=== PATIENT | female | born 1980 | race Caucasian/White ===

== ENCOUNTER 2016-05-31 21:11 | Inpatient (IN) | payer OTHER, MEDICARE ==
[~2016-05-31] VITALS: Ht 162.6 cm; Wt 63.5 kg
[~2016-05-31 21:11] MED LIST: ACAMPROSATE CA333 M1 PO; ALDACTONE50 MG PO; ATIVAN2 MG/ML IV; CEPHALEXIN500 M1 PO; DILAUDID2 MG/M1 IV; ENULOSE 2020 GM/30 M PO; FOLIC ACID 1 MG PO; FOLIC ACID1 M1 PO; FUROSEMIDE20 MG PO; FUROSEMIDE40 M1 PO; HALDOL 1MG TABLE1 MG PO; IRON325 M3 PO; K-DUR 20MEQ TA20 MEQ PO; LACTATED RING IV; LORAZEPAM1 MG PO; MULTI-DAY VITA1 EACH PO; MULTIVITAMIN1 TAB PO; ROCEPHIN2000 MG IV; SPIRONOLACTONE50 M1 PO; TUMS PO; TYLENOL TAB 32325 MG PO; Theragran Vitamins PO; VANCOMYCIN 11000 MG IV; VITAMIN B COMP1 EACH PO; VITAMIN B1100 MG PO; VITAMIN D31000 UNI1 PO; VITAMIN D3400 UNI1 PO; XIFAXAN550 MG PO; ZOFRAN 2MG/4 MG/2 ML IV
--- NOTE | 2016-05-31 21:34 | ED PSYCHIATRIC COMPLAINT ---
History of Present Illness General Chief Complaint: ETOH/Drug Related Complaint Stated Complaint: PT NEEDS TO DETOX FROM ALCOHOL Source: patient, family Exam Limitations: intoxication Vital Signs & Intake/Output Vital Signs & Intake/Output Vital Signs Date Time Temp Pulse Resp B/P Pulse O2 O2 Flow FiO2 Ox Delivery Rate 06/01 0342 97.7 131 16 133/64 06/01 0317 97.7 132 18 133/64 96 Room Air 06/01 0145 98.0 127 18 135/78 06/01 0145 98.0 127 18 135/78 96 05/31 2345 126 18 130/78 05/31 2345 98.1 126 18 130/78 96 05/31 2318 130 138/82 05/31 2244 99.1 112 20 139/80 97 Room Air 05/31 2243 99.1 111 18 139/80 05/31 2120 98.0 132 22 145/94 96 ED Intake and Output 06/01 0000 05/31 1200 Intake Total Output Total Balance Patient 130 lb Weight Allergies Coded Allergies: NO KNOWN ALLERGIES (08/25/15) Triage Note: PER PT " I AM AN ALCOHOLIC AND NEED DETOX" APPEARS IMPAIRED BUT REPORTS LAST DRINK THIS AM. DENEIS SI/HI. PT DENIES WITHDRAWAL SZ. Triage Nurses Notes Reviewed? yes Onset: Gradual Duration: several years, worse times one month Timing: multiple episodes today Severity: severe Associated Symptoms: intoxication : No Patient currently breastfeeds: No HPI: This is a 35-year-old female with history of alcoholism for the past 5 years who presents with family from home for chief complaint of alcohol abuse. Patient has history of alcohol dependence for the past 5 years. She has had admissions to the ICU for combinations of anemia, failure to thrive, pancreatitis most recent 2 months ago in [place] for TAC and compartment syndrome of her left leg. She has been missing since Sunday and tonight they got a call from the film editor of the house in which she was staying illegally. Admits to drinking today. Found to having bruising on her right flank, unknown trauma. (CODY DE LA FUENTE,DANA) Reconcile Medications Acamprosate Calcium 333 MG TABLET. 1 TAB PO TID SUBSTANCE ABUSE (Reported) Cholecalciferol (Vitamin D3) (Vitamin D3) 400 UNIT TABLET 1 TAB PO DAILY SUPPLEMENT (Reported) Ferrous Sulfate (IRON) 325 MG TABLET 1 TAB PO DAILY SUPPLEMENT (Reported) Folic Acid 1 MG TABLET 1 TAB PO DAILY NUTRTION (Reported) Furosemide 40 MG TABLET 1 TAB PO DAILY DIURETIC (Reported) Multivitamin (Multi-Day Vitamins) 1 EACH TABLET 1 TAB PO DAILY SUPPLEMENT ( Reported) Spironolactone 50 MG TABLET 1 TAB PO DAILY DIURETIC (Reported) Vitamin B Complex 1 EACH CAPSULE 1 CAP PO DAILY SUPPLEMENT (Reported) (KEVIN DE LA FUENTE,LUAN [place]) Past History Travel History Traveled to [place] past 21 day No Medical History Any Pertinent Medical History? see below for history Neurological: delerium tremens EENT: NONE Cardiovascular: HEART MURMUR Respiratory: NONE Gastrointestinal: ALCOHOLIC HEPATITIS UPPER GI BLEED HEPATIC ENCEPHALOPATHY C. difficile Hepatic: cholelithiasis, cirrhosis Renal: NONE Musculoskeletal: NONE Psychiatric: anxiety, depression, delirium tremens PTSD Endocrine: NONE Blood Disorders: anemia, coagulopathy, thrombocytopenia Cancer(s): NONE AUTISM TUTOR/Reproductive: NONE History of MRSA: No History of VRE: Yes History of CDIFF: No Surgical History Surgical History: ulcer debridement of inner thighs Psychosocial History Who do you live with Mother What is your primary language Telugu Tobacco Use: Never used Family History Family History, If Any: Relation not specified for: *No pertinent family history Hx Contributory? No (CODY DE LA FUENTE,DANA) Review of Systems Review of Systems Constitutional: Reports: malaise, weakness. Denies: chills, fever. EENTM: Reports: no symptoms. Respiratory: Reports: no symptoms. Cardiovascular: Denies: chest pain. GI: Reports: abdominal pain. Genitourinary: Reports: no symptoms. Musculoskeletal: Reports: no symptoms. Skin: Reports: no symptoms. Neurological/Psychological: Reports: anxiety, depressed. Hematologic/Endocrine: Reports: bruising, bleeding. Denies: polyuria, polydipsia. Immunologic/Allergic: Reports: no symptoms. All Other Systems: Reviewed and Negative (DANA ROSS MD) Physical Exam Physical Exam General Appearance: alert, awake, anxious, cachetic, mild distress, thin Head: atraumatic Eyes: Bilateral: PERRL, EOMI. Ears, Nose, Throat: normal pharynx, normal ENT inspection, hearing grossly normal Neck: normal inspection, supple Respiratory: normal breath sounds Cardiovascular: regular rate/rhythm Gastrointestinal: soft, tenderness (RIGHT FLANK) Extremities: normal range of motion Neurological/Psychiatric: awake, alert Appearance/Memory/Insight: disheveled, impaired insight Behavoir/Eye Contact/Speech: decreased rate of speech Thoughts/Hallucinations: no apparent hallucination Skin: intact, normal color, warm/dry SAD PERSONS Done? unobtained due to conditi (CODY DE LA FUENTE,DANA) Progress Differential Diagnosis: ALCOHOL ABUSE, ANEMIA, FLANK HEMATOMA, INTRAPERITONEAL BLEEDING, WITHDRAWL Plan of Care: Orders Procedure Date/time Status Regular Diet 06/01 B Active Lab Add-on Test 06/01 050 Active PROTHROMBIN TIME 06/01 0500 Active PHOSPHORUS 06/01 0500 Active MAGNESIUM 06/01 0500 Active HEPATIC FUNCTION PANEL 06/01 0500 Active CBC WITHOUT DIFFERENTIAL 06/01 0500 Active BASIC ELECTROLYTES PLUS BUN&CR 06/01 0500 Active Pathway - chart 06/01 034 Active House Staff 06/01 034 Active Patient Data 06/01 034 Active Code Status 06/01 034 Active TYPE & SCREEN (NOT X-MATCH) 06/01 034 Active Patient Data 06/01 0306 Active Admit to inpatient 06/01 0305 Active Saline Lock 06/01 030 Active Misc Message 06/01 0300 Active ED Holding Orders 06/01 0300 Active Vital Signs 06/01 0300 Active Code Status 06/01 0300 Complete Admit to inpatient 06/01 0259 Active LACTIC ACID 06/01 0055 Complete VTE Mechanical Prophylaxis 06/01 UNK Active Seizure Precautions 06/01 UNK Active Hemoccult 06/01 UNK Active CIWA 06/01 UNK Active CIWA 05/31 2212 Active URINE DRUGS OF ABUSE 05/31 2154 Active URINALYSIS 05/31 215 Active TROPONIN LEVEL 05/31 2154 Complete PARTIAL THROMBOPLASTIN TIME 05/31 2154 Complete PROTHROMBIN TIME 05/31 215 Complete AMMONIA 05/31 2154 Complete LIPASE 05/31 2154 Complete LACTIC ACID 05/31 2154 Complete HUMAN BETA HCG SCREEN 05/31 215 Complete ETHANOL 05/31 2154 Complete COMPREHENSIVE METABOLIC PANEL 05/31 2154 Complete CREATINE PHOSPHOKINASE 05/31 2154 Complete CBC WITHOUT DIFFERENTIAL 05/31 2154 Complete EKG 05/31 2154 Active TYPE & SCREEN (NOT X-MATCH) 05/31 2154 Complete Current Medications Sig/Rafa Start time Last Medication Dose Stop Time Status Admin Furosemide 40 MG DAILY 06/01 1000 UNVr (Lasix) Multivitamins 1 TAB DAILY 06/01 1000 UNVr Therapeutic (Theragran-M Vitamins Tabs) Spironolactone 50 MG DAILY 06/01 1000 UNVr (Aldactone) Acetaminophen/ 1 TAB Q6 06/01 06 UNVr Hydrocodone Bitart (Vicodin) Lorazepam 2 MG Q6 06/01 06 UNVr (Ativan) Lidocaine 1 PAT Q24H PRN 06/01 034 UNVr (Lidoderm) Lorazepam 0 Q1P PRN 06/01 034 UNVr (Ativan) Laboratory Tests 06/01/16 0339: Methadone Screen Pending, Barbiturate Screen Pending, Ur Phencyclidine Scrn Pending, Amphetamines Screen Pending, U Benzodiazepines Scrn Pending, Urine Cocaine Screen Pending, Urine Cannabis Screen Pending, Urine Color Pending, Urine Clarity Pending, Urine pH Pending, Ur Specific [place] Pending, Urine Protein Pending, Urine Ketones Pending, Urine Nitrite Pending, Urine Bilirubin Pending, Urine Urobilinogen Pending, Ur Leukocyte Esterase Pending, Ur Microscopic Pending, Urine Hemoglobin Pending, Urine Glucose Pending 06/01/16 0303: Lactic Acid 1.7 05/31/16 2224: Anion Gap 17 H, Estimated GFR > 60, BUN/Creatinine Ratio 26.0 H, Glucose 131 H, Lactic Acid 3.5 H, Calcium 8.5, Total Bilirubin 14.4 H, AST 249 H, ALT 75 H, Alkaline Phosphatase 141 H, Ammonia 45 H, Creatine Kinase 101, Troponin I 0.02, Total Protein 8.6 H, Albumin 4.0, Globulin 4.6 H, Albumin/Globulin Ratio 0.9 L, Lipase 231, Total Beta HCG NEGATIVE, PT 19.1 H, INR 1.83 H, APTT 43 H , CBC w Diff MAN DIFF ORDERED, RBC 2.20 L, MCV 102.3 H, MCH 36.0 H, RDW 16.2 H, MPV 7.5, Segmented Neutrophils 66, Band Neutrophils 3, Lymphocytes 21, Monocytes 5, Eosinophils 2, Basophils 3 H, Nucleated RBCs 1 H, Platelet Estimate DECREASED, Hypochromic-Microcytic 1+, Poikilocytosis 1+, Anisocytosis 1 +, Macrocytic Cells 2+, PUBS MCHC 35.2, Serum Alcohol 398.0 Initial ED EKG: SINUS TACHYCARDIA AT 120 1 BP1 BPM Hand-Off Endorsed To: LUAN BROWN MD Endorsed Time: 2307 Pending: CT, labs (DANA ROSS MD) Departure Departure Disposition: STILL A PATIENT Condition: Stable Referrals: MIKY DE LA FUENTE,MILAN Limon (PCP/Family) Departure Forms: Customer Survey General Discharge Information (DANA ROSS MD) Departure Clinical Impression Primary Impression: Alcohol abuse Secondary Impressions: Hyperbilirubinemia, Liver dysfunction, Thrombocytopenia Admission Note Spoke With: CHEYANNE CAMPBELL MD Documentation of Exam: Documentation of any treatments & extenuating circumstances including Concerns Regarding Discharge (functional status, medication knowledge or non-compliance, living conditions, etc.) that warrant an admission rather than observation: pt with multiple metabolic abnormalities, including synthetic liver dysfunction, severe alcoholism, with high likelihood of needing ativan iv. She merits icu level care. (LUAN BROWN MD) Critical Care Note Critical Care Note Critical Care Time: 30-74 min (LUAN BROWN MD)
[2016-05-31 22:34] LABS: HEMATOCRIT 22.5 % (37-47); MEAN CORPUSCULAR HGB CONC 35.2 G/DL (33.0-37.0); MEAN CORPUSCULAR VOLUME 102.3 FL (81.0-99.0); MEAN PLATELET VOLUME 7.5 FL (7.4-10.4); RBC DISTRIBUTION WIDTH 16.2 % (11.5-14.5)
[2016-05-31 22:42] LABS: PT 19.1 SEC (9.4-12.5); PTT 43 SEC (25-37)
[2016-05-31 22:43] VITALS: BP 139/80
[2016-05-31 22:50] LABS: PLATELET COUNT 52 /CUMM (130-400); WHITE BLOOD CELL COUNT 8.9 /CUMM (4.8-10.8)
[2016-05-31 23:45] VITALS: BP 130/78
[2016-06-01 01:45] VITALS: BP 135/78
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
[2016-06-01 03:42] VITALS: BP 133/64
--- NOTE | 2016-06-01 03:59 | CT SCAN REPORT ---
EXAMINATION: CT ABDOMEN AND PELVIS WITH CONTRAST CLINICAL INFORMATION: Right flank pain with history of cirrhosis. Question of trauma. COMPARISON: CT from 02/19/2015 TECHNIQUE: Multidetector volumetric imaging was performed of the abdomen and pelvis before and after the IV administration of 95 mL of Optiray 320 intravenous contrast. Sagittal and coronal reformatted images were obtained on the technologist's workstation. DLP: 316 mGy-cm FINDINGS: LUNG BASES: The visualized lung bases are unremarkable. LIVER, GALLBLADDER, AND BILIARY TREE: The liver is normal in size, shape, and attenuation. This does not appear cirrhotic on the current study. No focal hepatic lesion or biliary ductal dilatation is present. The gallbladder is distended. Layering high attenuation is seen in the gallbladder lumen, consistent with sludge versus stones. No gallbladder wall thickening. No definite pericholecystic fluid. PANCREAS: The pancreas is somewhat atrophic with diffuse parenchymal calcification suggestive of chronic pancreatitis. The pancreatic duct is normal in caliber. SPLEEN: Unremarkable. ADRENAL GLANDS: Unremarkable. KIDNEYS AND URETERS: The kidneys are normal in size, shape, and attenuation. No hydronephrosis, hydroureter, or calculi seen. No perinephric stranding. BLADDER: Unremarkable. GASTROINTESTINAL TRACT: The stomach and small bowel appear unremarkable. No dilated loops of bowel or evidence of obstruction. Normal appendix. No colonic wall thickening or inflammatory change. Prominent stool in the rectum. ABDOMINAL WALL: Mild anasarca. Or focal prominent stranding in the subcutaneous fat along the right flank. This is asymmetric and could be posttraumatic in nature, representing a hematoma. LYMPH NODES: Normal. VASCULAR: Prominent varices are seen, particularly in the left upper quadrant. The portal vein is patent. PELVIC VISCERA: The uterus and adnexa are unremarkable. OSSEOUS STRUCTURES: No acute or suspicious osseous abnormality. No evidence of acute fracture. IMPRESSION: 1. Prominent stranding in the subcutaneous tissues along the right flank, suggestive of a posttraumatic hematoma. No acute intra-abdominal or intrapelvic traumatic findings. 2. Although the liver does not appear cirrhotic on the current study, varices are present, most prominently in the left upper quadrant. 3. Evidence of chronic pancreatitis. 4. Distended gallbladder with layering stone/sludge. This could be further evaluated by ultrasound.
--- NOTE | 2016-06-01 04:23 | Admission Certification ---
Admission Certification Certification Statement - As attending physician, I certify that at the time of - admission, based on clinical presentation, severity of - symptoms, need for further diagnostic testing and - therapeutic interventions, and risk of adverse outcomes - without in-hospital treatment, in my clinical assessment, - this patient requires an acute hospital stay for a minimum - of two nights or longer. I have also considered psychsocial - factors such as support system, advanced age, financial - issues, cognitive issues, and failed out-patient treatments, - past re-admission history, safety of patient, and lack of - compliance as applicable. Specific rationale supporting this admission is: Acute blood loss anemia, right flank hematoma, alcohol withdrawal, alcoholic hepatitis.
[2016-06-01 05:24] LABS: PT 22.3 SEC (9.4-12.5)
[2016-06-01 05:28] LABS: PLATELET COUNT 33 /CUMM (130-400); WHITE BLOOD CELL COUNT 6.1 /CUMM (4.8-10.8)
[2016-06-01 06:00] VITALS: BP 119/58
[2016-06-01 06:21] LABS: RED BLOOD CELL CT ND /CUMM (4.20-5.40)
[2016-06-01 08:00] VITALS: BP 120/60
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
--- NOTE | 2016-06-01 08:32 | ULTRASOUND REPORT ---
EXAMINATION: US ABDOMEN LIMITED CLINICAL INFORMATION: Gallbladder distention. Pain.. COMPARISON: 05/31/2015 CT scan TECHNIQUE: Real-time imaging of the right upper quadrant abdominal viscera. FINDINGS: PANCREAS: Grossly stable without focal abnormality. Pancreatic duct grossly normal. Calcifications not appreciated on ultrasound. LIVER: Normal. Liver is without focal abnormality. Some heterogeneity noted consistent with intrinsic hepatocellular disease. Hepatofugal flow direction within the main portal vein. GALLBLADDER: The gallbladder is distended moderately with echogenic material consistent with sludge, blood or pus potentially. There are stones noted. The gallbladder wall is borderline prominent 3 mm. There is no pericholecystic fluid. Sonographic Clements's sign could not be assessed due to patient sedation. COMMON BILE DUCT: Normal in caliber measuring 0.4 cm in diameter. RIGHT KIDNEY: Normal. No hydronephrosis. No renal calculi or focal parenchymal lesions. The kidney measures 12.4 cm in maximum dimension. FREE FLUID: None. IMPRESSION: Patient is sedated as above. The gallbladder is notable for distention and borderline gallbladder wall thickening and small layering stones as well as echogenic material which is nonspecific as above. Correlation is recommended. Early acute cholecystitis is not excluded based on the sonographic appearance. Incidental sludge and stones can also appear this way in a fasting patient.
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
--- NOTE | 2016-06-01 13:58 | RADIOLOGY REPORT ---
EXAMINATION: XR PORTABLE CHEST CLINICAL INFORMATION: Obtunded. Rule out pneumonia. COMPARISON: 08/25/2015 TECHNIQUE: Portable AP semiupright view of the chest was obtained. FINDINGS: Cardiac and mediastinal silhouettes are normal in appearance. Incidental right azygos fissure. The lungs are clear. IMPRESSION: Unremarkable examination.
[2016-06-01 15:18] LABS: MEAN CORPUSCULAR HGB 34.1 PG (27.0-31.0); MEAN CORPUSCULAR HGB CONC 36.1 G/DL (33.0-37.0); MEAN PLATELET VOLUME 7.4 FL (7.4-10.4); RBC DISTRIBUTION WIDTH 22.7 % (11.5-14.5); RED BLOOD CELL CT 2.45 /CUMM (4.20-5.40); WHITE BLOOD CELL COUNT 5.6 /CUMM (4.8-10.8)
[2016-06-01 15:52] LABS: HEMATOCRIT 23.1 % (37-47); MEAN CORPUSCULAR VOLUME 94.4 FL (81.0-99.0)
[2016-06-01 15:54] LABS: PLATELET COUNT 26 /CUMM (130-400)
[2016-06-01 16:00] VITALS: BP 146/94
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
[2016-06-01 22:00] VITALS: BP 108/74
[2016-06-02] VITALS (9 sets, daily range): BP systolic 102–134; BP diastolic 60–76
[2016-06-02 06:24] LABS: MEAN PLATELET VOLUME 7.8 FL (7.4-10.4); RBC DISTRIBUTION WIDTH 23.2 % (11.5-14.5); WHITE BLOOD CELL COUNT 6.3 /CUMM (4.8-10.8)
[2016-06-02 07:48] LABS: HEMATOCRIT 20.3 % (37-47); MEAN CORPUSCULAR HGB 34.2 PG (27.0-31.0); MEAN CORPUSCULAR HGB CONC 36.3 G/DL (33.0-37.0); MEAN CORPUSCULAR VOLUME 93.9 FL (81.0-99.0); PLATELET COUNT 25 /CUMM (130-400); RED BLOOD CELL CT 2.16 /CUMM (4.20-5.40)
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
[2016-06-02 15:18] LABS: PT 18.4 SEC (9.4-12.5); PTT 37 SEC (25-37)
[2016-06-02 19:06] LABS: HEMATOCRIT 21.9 % (37-47); MEAN CORPUSCULAR HGB 33.9 PG (27.0-31.0); MEAN CORPUSCULAR HGB CONC 35.9 G/DL (33.0-37.0); MEAN CORPUSCULAR VOLUME 94.4 FL (81.0-99.0); MEAN PLATELET VOLUME 8.1 FL (7.4-10.4); RBC DISTRIBUTION WIDTH 22.4 % (11.5-14.5); RED BLOOD CELL CT 2.32 /CUMM (4.20-5.40); WHITE BLOOD CELL COUNT 7.1 /CUMM (4.8-10.8)
[2016-06-02 19:11] LABS: PLATELET COUNT 55 /CUMM (130-400)
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
--- NOTE | 2016-06-02 23:39 | ULTRASOUND REPORT ---
EXAMINATION: ULTRASOUND OF THE PELVIS CLINICAL INFORMATION: Vaginal bleeding. No menstrual periods for years. COMPARISON: CT 06/01/2016. TECHNIQUE: Transabdominal pelvic ultrasound. Doppler evaluation with spectral analysis. FINDINGS: The uterus is normal in size and appearance, measuring 6.2 x 3.2 x 3.5 cm longitudinally, anteroposteriorly and transversely. The endometrial stripe thickness is normal, measuring 0.3 cm in thickness. No focal myometrial mass is seen. The cervical length is normal measuring 2.4 cm. The ovaries bilaterally are visualized and appear normal, with the right ovary measuring 3 x 1.9 x 1.8 cm and the left ovary measuring 2.8 x 2.5 x 3 cm. Normal Doppler flow to both ovaries. No adnexal mass or free fluid collection seen. IMPRESSION: Unremarkable pelvic ultrasound..
[2016-06-02 23:52] LABS: MEAN PLATELET VOLUME 7.4 FL (7.4-10.4); PLATELET COUNT 71 /CUMM (130-400); WHITE BLOOD CELL COUNT 7.1 /CUMM (4.8-10.8)
[2016-06-03] VITALS (10 sets, daily range): BP systolic 98–124; BP diastolic 52–78
[2016-06-03 00:56] LABS: RED BLOOD CELL CT ND /CUMM (4.20-5.40)
[2016-06-03 05:02] LABS: MEAN PLATELET VOLUME 8.2 FL (7.4-10.4); PLATELET COUNT 70 /CUMM (130-400); WHITE BLOOD CELL COUNT 7.5 /CUMM (4.8-10.8)
[2016-06-03 05:33] LABS: PT 18.8 SEC (9.4-12.5); PTT 35 SEC (25-37)
[2016-06-03 06:15] LABS: RED BLOOD CELL CT ND /CUMM (4.20-5.40)
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
[2016-06-03] MEDS ORDERED: MEPHYTON5 M1 PO (11:53)
--- NOTE | 2016-06-03 11:54 | Patient Discharge Instructions ---
Discharge Instructions General Discharge Information You were seen/treated for: decompensated cirrhosis Coagulopathy Hematoma Special Instructions: -[facility] for further management of your medical conditions. -Please follow-up with your primary care provider within 7 days after discharge. -We have made changes to your home medications, please read the instructions carefully. -Please come back to the hospital if your symptoms got worse. Diet Continue normal diet: Yes Activity Full Activity/No Limits: Yes (as tolerated) Acute Coronary Syndrome Inclusion Criteria At DC or during hospital stay patient has or had the following: ACS DIAGNOSIS No Discharge Core Measures Meds if any: Prescribed or Continued at Discharge Meds if any: NOT Prescribed or Continued at Discharge Congestive Heart Failure Inclusion Criteria At DC or during hospital stay patient has or had the following: CHF DIAGNOSIS No Discharge Core Measures Meds if any: Prescribed or Continued at Discharge Meds if any: NOT Prescribed or Continued at Discharge Cerebrovascular accident Inclusion Criteria At DC or during hospital stay patient has or had the following: CVA/TIA Diagnosis No Discharge Core Measures Meds if any: Prescribed or Continued at Discharge Meds if any: NOT Prescribed or Continued at Discharge Venous thromboembolism Inclusion Criteria VTE Diagnosis No VTE Type NONE VTE Confirmed by (Test) NONE Discharge Core Measures - Per Current guidelines, there needs to be overlap - treatment for the first 5 days of Warfarin therapy. - If discharged on Warfarin prior to 5 days of - overlap therapy, the patient will need to be - assessed for post discharge needs including - *Post discharge parental anticoagulation - *Warfarin and/or parental anticoagulation education - *Follow up date to check INR post discharge At least 5 days overlap therapy as Inpatient No Meds if any: Prescribed or Continued at Discharge Note: Overlap Therapy is Warfarin and Anticoagulant Meds if any: NOT Prescribed or Continued at Discharge
[2016-06-03] MEDS ORDERED: NYSTATIN100000 UNI PO (11:57)
[2016-06-03] MEDS ORDERED: LORAZEPAM1 M1 PO (11:57)
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
== END 2016-06-03 17:45 | disposition short-term general hospital (02) | DRG 811 ==
LOC: ENRESERVTM → ENRESERVDT → ERH 21:11 → ERHI 06-01 03:25 → CRI 06-01 03:25
PROVIDERS: Emergency Medicine; Internal Medicine; Internal Medicine Cardiovascular Disease; Preventive Medicine Public Health & General Preventive Medicine; Student in an Organized Health Care Education/Training Program; ADMIT Student in an Organized Health Care Education/Training Program
PROC: 30233N1 Transfusion of Nonautologous Red Blood Cells into Peripheral Vein, Percutaneous Approach (ICD-10-PCS; principal; 2016-06-01)
PROC: 30233N1 Transfusion of Nonautologous Red Blood Cells into Peripheral Vein, Percutaneous Approach (ICD-10-PCS; 2016-06-02)
DX: D62 Acute posthemorrhagic anemia (principal); D65 Disseminated intravascular coagulation [defibrination syndrome]; B37.0 Candidal stomatitis; I85.10 Secondary esophageal varices without bleeding; D69.6 Thrombocytopenia, unspecified; K86.0 Alcohol-induced chronic pancreatitis; F10.239 Alcohol dependence with withdrawal, unspecified; K70.30 Alcoholic cirrhosis of liver without ascites; Y90.8 Blood alcohol level of 240 mg/100 ml or more; S30.1XXA Contusion of abdominal wall, initial encounter; K70.10 Alcoholic hepatitis without ascites; N93.9 Abnormal uterine and vaginal bleeding, unspecified; R04.0 Epistaxis; R31.9 Hematuria, unspecified
CPT/HCPCS: CCU; 36415; 74177; 80307; 81001; 82436; 83010; 86920; 87389; 93005; 93010; 96374; G0480; J2405; J3490; J7042; P9016; P9017; P9031